=== PATIENT | female | born 1945 | race Caucasian/White ===

== ENCOUNTER 2016-04-29 16:25 | Outpatient (CLI) | payer MEDICARE ==
--- NOTE | 2016-04-29 20:00 | RAD ---
TWO VIEWS RIGHT HIP 04/29/16 HISTORY: Pain, sciatica. FINDINGS: Minimal joint space narrowing. Mild lateral acetabular osteophyte formation and subchondral sclerosi s. No fracture or dislocation. IMPRESSION: Degenerative joint disease. No fracture or dislocation. POS: [facility]
--- NOTE | 2016-04-29 20:01 | RAD ---
TWO VIEWS OF THE LEFT HIP 04/29/16 COMPARISON: None. HISTORY: Left sided sciatic pain. FINDINGS: There is mild superior joint space narrowing. There is moderate lateral acetabular osteophyte format ion. No displaced fracture or dislocation seen. IMPRESSION: Degenerative joint disease. No acute fracture or dislocation. POS: [facility]
== END 2016-04-29 16:26 | disposition home or self-care (01) ==
LOC: NAV RAD 16:25
PROVIDERS: ATTEND Family Medicine
DX: M25.552 Pain in left hip (principal)

== ENCOUNTER 2018-11-17 16:49 | Outpatient (CLI) | payer MEDICARE ==
--- NOTE | 2018-11-17 17:12 | RAD ---
RIGHT KNEE FOUR VIEWS: 11/17/18 HISTORY: Right knee pain. There are arthritic changes of the knee. There is mild medial compartment joint space narrowing. Ther e is some minimal patellofemoral spur formation. There is chondrocalcinosis of the meniscal cartilage . IMPRESSION: Mild arthritic changes of the knee. POS: [facility]
--- NOTE | 2018-11-17 18:18 | ULT ---
RIGHT LOWER EXTREMITY VENOUS DUPLEX EXAM: 11/17/18 HISTORY: Right lower extremity edema. Real time color Doppler evaluation of the right lower extremity was performed from groin to calf. Thi s includes evaluation of the common femoral, superficial and profunda femoral, saphenous, popliteal, and posterior tibial veins. This shows a patent deep venous system with normal compressibility and au gmentation. A complex fluid collection is seen in the popliteal fossa region measuring 1.6 x 7.6 cm in size most compatible with a Santillan's cyst. IMPRESSION: No evidence of DVT of the right lower extremity. POS: [facility]
== END 2018-11-17 16:50 | disposition home or self-care (01) ==
LOC: NAV RAD 16:49
PROVIDERS: ATTEND Family Medicine
DX: M25.561 Pain in right knee (principal); R60.0 Localized edema; M17.11 Unilateral primary osteoarthritis, right knee